=== PATIENT | female | born 2000 | race Caucasian/White ===

== ENCOUNTER 2021-06-13 21:54 | Inpatient (IN) ==
[2021-06-13] MEDS ORDERED: OXYTOCIN 30 UNITS/500 ML BAG IV PRN (22:35)
--- NOTE | 2021-06-13 22:40 | History & Physical Report ---
Date of Service June 13, 2021 Assessment & Plan (1) Encounter for supervision of normal intrauterine in primigravida, antepartum: Plan: Admit to L&D. EFM/toco. Labs, COVID swab per protocol. OK for epidural when she desires. Anticipate . History of Present Illness Chief Complaint: labor Primary Care Provider: NO PCP 21yo @ 39 4/7, contractions over the past few days. Increasing this evening. Scant vaginal blood. No leaking fluid. +FM. with transfer of care at 22w. Allergies Allergy/AdvReac Type Severity Reaction Status Date / Time amoxicillin Allergy Intermediate hives Verified 06/13/21 22:11 mupirocin [From Bactroban] Allergy Mild rash Verified 06/13/21 22:11 Home Medications Medication Instructions Recorded Confirmed Type prenat.vits,dawit,jgi-qwzp-obvzv 1 tab PO DAILY 02/02/21 06/13/21 History Patient History Medical History Deviated septum HPV (human papilloma virus) infection LGSIL (low grade squamous intraepithelial dysplasia) Surgical History History of colposcopy Family History Denies family history of Ovarian cancer Diabetes Breast cancer Lung cancer Colorectal cancer Cancer Hypertension Social History Smoking Status: Never smoker Second Hand Exposure: No; Hx Alcohol Use: No Hx Substance Use: No Preferred Language: Bengali Communication Ability: Effective Visual Impairment: No Limitations Hearing Ability: Normal Engraver Hand Soft Metals Required: No Beliefs That Will Affect Care: None marital status: Single marital status details: Kevan Grubbs Junior (26) [phone] Current Living Situation: Significant Other Current Living Situation Comment: Significant other and no pets current occupational status: employed current occupation: [employer] Other Information That Helps Us Care for You: No Feels Safe at Home: No Is there a partner from a previous relationship who is making you feel unsafe now?: No Any Concerns about Your Family Situation: No Would You Like to Speak to Someone About Your Situation: No Safety Concerns: Feels Safe At This Time Childhood Exposure to Second-Hand Smoke: No caffeine: No Dental Care, Regularly: Yes Seatbelt Use: always Sunscreen Use: No Do you think of yourself as: straight/heterosexual Sexual Activity: has been sexually active within the last 12 months Gender Identity: Female Assistive Devices: None Review of Systems All systems reviewed & are unremarkable except as noted in HPI & below Physical Exam Constitutional: WD/WN, vitals as above Respiratory: normal respiratory effort, lungs clear to auscultation no respiratory distress Cardiovascular: Rate/Rhythm: regular rate and regular rhythm Gastrointestinal (Abdomen): Inspection/Auscultation: abdomen normal to inspection Percussion/Palpation: abdomen soft; abdomen nontender Gravid. No s/s chorio or abruption. Skin: no rashes, warm and dry Psychiatric: A+Ox3, euthymic affect Results & Data ([facility]) Vital Signs (Past 12 Hours) Vital Signs Temp Pulse Resp BP 06/13/21 22:12 36.8 C 64 18 118/75 06/13/21 22:09 64 118/75 Monitoring External Monitor FHT Cat 1 [place] Q 2-4 min SVE 4cm/90/bulging membranes per RN exam Coding Level of Care Code None Diagnoses Encounter for supervision of normal intrauterine in primigravida, antepartum Z34.00
[2021-06-13 23:02] LABS: Hematocrit (blood only) 37.3 % (37-47); Hemoglobin 12.9 g/dL (12.0-16.0); Mean Corpuscular Hemoglobin 30.9 pg (25-34); Mean Corpuscular Hgb Conc 34.6 g/dL (32-36); Mean Corpuscular Volume 89.4 fL (80-100); Mean Platelet Volume 12.1 fL (7.4-10.4); Platelet Count 183 K/uL (130-400); RDW Coefficient of Variation 13.1 % (11.5-14.5); RDW Standard Deviation 42.9 fL (36.4-46.3); Red Blood Count 4.17 M/uL (4.2-5.4); White Blood Count 10.47 K/uL (4.8-10.8)
[2021-06-13] MEDS: LACTATED RINGER'S 1,000 ML IV PRN (23:02)
[2021-06-13] MEDS ORDERED: fentaNYL citrate 100 MCG/2 ML VIAL ONE (23:08)
[2021-06-13] MEDS ORDERED: BUPIVACAINE 0.25% 30 ML VIAL ONE (23:08)
[2021-06-13] MEDS ORDERED: SODIUM CHLORIDE 0.9% INJ 10 ML VIAL ONE (23:08)
[2021-06-13] MEDS ORDERED: ePHEDrine sulfate 50 MG/ML AMP ONE (23:08)
[2021-06-13] MEDS ORDERED: fentaNYL 2MCG/ML ROPIVACAINE 1.25MG/ML 100 ML BAG EPI ONE (23:09)
[2021-06-13] MEDS ORDERED: fentaNYL 2MCG/ML ROPIVACAINE 1.25MG/ML 100 ML BAG EPI PRN (23:27)
[2021-06-13] MEDS ORDERED: diphenhydrAMINE 50 MG/ML VIAL IV PRN (23:27)
[2021-06-13] MEDS ORDERED: NALOXONE HCL 0.4 MG/1 ML VIAL/CARP IV PRN (23:27)
[2021-06-13] MEDS ORDERED: ePHEDrine sulfate 50 MG/ML AMP IV PRN (23:27)
[2021-06-13] MEDS ORDERED: ONDANSETRON INJ 2 MG/ML 2 ML VIAL IV PRN (23:27)
[2021-06-13] MEDS ORDERED: NALOXONE HCL 1 MG in SODIUM CHLORIDE 0.9% 1000ML 1,000 ML IV PRN (23:27)
[2021-06-13] MEDS ORDERED: NALBUPHINE HCL INJ 10 MG/ML AMP IV PRN (23:27)
--- NOTE | 2021-06-13 23:27 | Anesthesiology Consultation ---
Date of Service June 13, 2021 Assessment & Plan ASA ASA2 Proposed Anesthesia Anesthesia Type: Labor Epidural Risk / Benefits Reviewed With: PT / POA / Parent / Guardian, Accepts Plan and Informed Consent Obtained History Height/Weight Height: 5 ft 3 in Weight: 63.503 kg Allergies Allergy/AdvReac Type Severity Reaction Status Date / Time amoxicillin Allergy Intermediate hives Verified 06/13/21 22:11 mupirocin [From Bactroban] Allergy Mild rash Verified 06/13/21 22:11 Medications Home Medications Medication Instructions Recorded Confirmed Last Taken prenat.vits,dawit,tog-slwm-eklbt 1 tab PO DAILY 02/02/21 06/13/21 06/12/21 08:00 Active Medications Generic Name Dose Route Start Last Admin Trade Name Freq PRN Reason Stop Dose Admin Lactated Ringer's 1,000 mls @ 125 mls/hr 06/13/21 22:35 06/13/21 23:49 Lr IV 06/15/21 22:34 125 mls/hr .Q8H PRN Infusion L&D Protocol Protocol Past Medical History Medical History Deviated septum HPV (human papilloma virus) infection LGSIL (low grade squamous intraepithelial dysplasia) Exercise / Class Metabolic Activity II 4-5 Yardwork/Stairs/Walk up hill Past Family History Family History Denies family history of Ovarian cancer Diabetes Breast cancer Lung cancer Colorectal cancer Cancer Hypertension Past Surgical History Surgical History History of colposcopy Past Anesthesia History No Hx of Anesthesia Complications and No Family Hx of Anesthesia Complications History of PONV No Hx of PONV and No Hx of Motion Sickness Social History Smoking Status: Never smoker Hx Alcohol Use: No Hx Substance Use: No substance use type: does not use Review of Systems denies fever/cough/ colds/ chest pain/ SOB/ JOY denies JOY Physical Exam Vital Signs Last Vital Signs Temp 36.8 C 06/13/21 22:12 Pulse 74 06/13/21 23:57 Resp 18 06/13/21 22:12 BP 113/61 06/13/21 23:57 Pulse Ox 98 06/13/21 23:54 ENMT Mouth: no TMJ abnormality and no dentition abnormality Thyromental Distance: > or= 3.5 Finger Breadths Mallampati Class: II Neck neck extension not limited Respiratory normal respiratory effort; no respiratory distress Auscultation: lungs clear to auscultation bilaterally Cardiovascular Rate/Rhythm: regular rate and regular rhythm Neurologic moves all extremities Psychiatric Orientation: alert and oriented x 3 Testing Laboratory Results 06/13/21 22:50
[2021-06-14] MEDS: LACTATED RINGER'S 1,000 ML IV PRN (00:28)
--- NOTE | 2021-06-14 05:09 | Delivery Summary ---
Vaginal Delivery Summary Date of Service June 14, 2021 Vaginal Delivery Summary and 1st Degree LAC Vaginal Delivery Summary: Pre-delivery diagnoses: 21yo @ 39 5/7, spontaneous labor Post-delivery diagnoses: same Procedure: spontaneous vaginal delivery, repair of 1st degree tear Surgeon: Kenisha Abdi DO Complications: none Findings: Viable male . Apgars: 8/9 . Weight pending, please see nursery records Estimated blood loss: 300ml Description of delivery: The patient progressed to complete with epidural anesthesia. She then began to push. She spontaneously vaginally delivered a viable from the cephalic presentation. The head delivered in FORREST position. The anterior shoulder delivered, followed by the posterior shoulder, followed by the body. The baby was placed on mother's abdomen and a spontaneous cry was heard. Delayed cord clamping was employed, and the cord was doubly clamped and cut. Cord blood was obtained. The placenta was delivered spontaneously intact with a 3-vessel cord. The uterus and vagina were swept of clots and debris. IV pitocin was given. The uterus became firm. The cervix, vagina, and perineum were inspected and a 1st degree perineal laceration was noted and repaired with a figure of eight stitch of 3-0 vicryl to obtain hemostasis. Excellent hemostasis was observed. The mother and baby are recovering in stable and good condition in the room. Sponge, needle and instrument counts were correct x 2. Kenisha Abdi DO [facility] Vaginal Delivery Charge Vaginal Delivery Codes: 00784 global code for the antepartum, delivery, and post- Delivery Type Details: and 1st Degree LAC
[2021-06-14] MEDS ORDERED: bisacodyL 10 MG SUPP PR PRN (05:33)
[2021-06-14] MEDS ORDERED: BENZOCAINE 20% AER SPR 82.5 GM CAN EXT PRN (05:33)
[2021-06-14] MEDS ORDERED: HYDROCORTISONE ACETATE 25 MG SUPP PR PRN (05:33)
[2021-06-14] MEDS ORDERED: ACETAMINOPHEN 325 MG TAB PO PRN (05:33)
[2021-06-14] MEDS ORDERED: OXYTOCIN 30 UNITS/500 ML BAG IV PRN (05:33)
[2021-06-14] MEDS ORDERED: DIPHTHERIA/TETANUS/PERTUSSIS 0.5 ML SYR/VIAL IM ONE (05:33)
[2021-06-14] MEDS ORDERED: oxyCODONE/ACETAMINOPHEN 5mg/325mg TAB PO PRN (05:33)
--- NOTE | 2021-06-14 07:04 | Anesthesiology Progress Note ---
Date of Service June 14, 2021 Anesthesia Post Procedure Vital Signs Vital Signs: Temp Pulse Resp BP Pulse Ox 06/14/21 06:55 80 122/72 06/14/21 06:40 77 113/67 06/14/21 06:35 18 06/14/21 06:25 76 123/85 06/14/21 06:10 73 103/69 06/14/21 06:05 20 06/14/21 05:55 68 111/73 06/14/21 05:50 18 06/14/21 05:40 65 110/69 06/14/21 05:35 16 06/14/21 05:26 55 L 109/66 06/14/21 05:20 18 06/14/21 05:09 65 104/56 L 06/14/21 05:05 74 18 100 06/14/21 05:00 71 99 06/14/21 04:55 67 100 06/14/21 04:50 83 98 06/14/21 04:49 20 06/14/21 04:47 93 H 84 L 06/14/21 04:45 109 H 100 06/14/21 04:40 99 H 100 06/14/21 04:35 81 99 06/14/21 04:31 99 H 140/58 L 06/14/21 04:30 101 H 16 100 06/14/21 04:24 86 99 06/14/21 04:20 36.7 C 06/14/21 04:19 77 98 06/14/21 04:16 75 86/55 L 06/14/21 04:14 71 97 06/14/21 04:09 66 96 06/14/21 04:04 74 97 06/14/21 04:01 72 92/55 L 06/14/21 03:59 72 98 06/14/21 03:54 86 99 06/14/21 03:49 79 100 06/14/21 03:45 71 96/56 L 06/14/21 03:44 68 98 06/14/21 03:39 62 98 06/14/21 03:34 68 97 06/14/21 03:31 64 97/56 L 06/14/21 03:29 65 98 06/14/21 03:24 66 98 06/14/21 03:19 60 98 06/14/21 03:16 56 L 92/54 L 06/14/21 03:14 63 96 06/14/21 03:09 60 95 06/14/21 03:04 63 95 06/14/21 03:01 55 L 88/50 L 06/14/21 03:00 16 06/14/21 02:59 58 L 96 06/14/21 02:54 66 96 06/14/21 02:49 65 97 06/14/21 02:45 68 98/52 L 06/14/21 02:44 63 97 06/14/21 02:39 62 98 06/14/21 02:34 62 99 06/14/21 02:30 16 06/14/21 02:29 57 L 98/54 L 99 06/14/21 02:27 36.8 C 06/14/21 02:24 60 99 06/14/21 02:19 64 99 06/14/21 02:15 59 L 107/69 06/14/21 02:14 57 L 99 06/14/21 02:09 68 99 06/14/21 02:04 66 100 06/14/21 02:00 61 16 107/67 06/14/21 01:59 63 99 06/14/21 01:54 55 L 99 06/14/21 01:49 61 100 06/14/21 01:44 62 113/66 100 06/14/21 01:39 56 L 98 06/14/21 01:34 55 L 100 06/14/21 01:31 54 L 110/65 06/14/21 01:30 16 06/14/21 01:29 56 L 99 06/14/21 01:24 56 L 99 06/14/21 01:19 56 L 100 06/14/21 01:15 54 L 110/60 06/14/21 01:14 55 L 98 06/14/21 01:09 53 L 99 06/14/21 01:04 60 100 06/14/21 01:00 16 06/14/21 00:59 61 113/63 96 06/14/21 00:57 70 92 06/14/21 00:54 64 99 06/14/21 00:49 65 100 06/14/21 00:44 60 98 06/14/21 00:41 63 113/83 06/14/21 00:39 66 100 06/14/21 00:34 64 99 06/14/21 00:30 18 06/14/21 00:29 86 100 06/14/21 00:25 74 100/54 L 06/14/21 00:24 75 100 06/14/21 00:22 36.7 C 06/14/21 00:19 98 H 104/59 L 100 06/14/21 00:14 64 107/68 99 06/14/21 00:09 65 97 06/14/21 00:08 67 111/65 06/14/21 00:04 71 97 06/14/21 00:02 74 96/61 L 06/13/21 23:59 74 107/65 97 06/13/21 23:57 74 113/61 06/13/21 23:54 76 123/69 98 06/13/21 23:52 74 109/70 06/13/21 23:50 72 107/67 06/13/21 23:49 76 98 06/13/21 23:44 81 100 06/13/21 23:39 76 85 L 06/13/21 23:34 71 100 06/13/21 23:29 72 100 06/13/21 23:24 73 100 06/13/21 23:19 72 100 06/13/21 22:12 36.8 C 64 18 118/75 06/13/21 22:09 36.8 C 64 18 118/75 Pain Intensity Left Lower Abdomen: Pain Intensity: 0 Transfer of Care Handoff Completed per policy Notes Mental Status: alert / awake / arousable and participated in evaluation Patient Amnestic to Procedure: Yes Nausea / Vomiting: adequately controlled Pain: adequately controlled Airway Patency, RR, SpO2: stable & adequate BP & HR: stable & adequate Hydration State: stable & adequate Anesthetic Complications: no major complications apparent and Pt Satisfied with anesthetic care
[2021-06-14] MEDS: IBUPROFEN 600 MG TAB PO PRN ×3 (08:55→20:24)
[2021-06-14] MEDS: PRENATAL VITAMIN 1 TAB PO SCH (08:55)
[2021-06-14] MEDS: DOCUSATE SODIUM 100 MG CAP PO SCH ×2 (08:55→20:24)
[2021-06-15] MEDS: IBUPROFEN 600 MG TAB PO PRN ×4 (00:34→19:45)
[2021-06-15 06:18] LABS: Hematocrit (blood only) 32.3 % (37-47); Mean Corpuscular Hemoglobin 31.5 pg (25-34); Mean Corpuscular Hgb Conc 34.1 g/dL (32-36); Mean Corpuscular Volume 92.6 fL (80-100); Mean Platelet Volume 12.1 fL (7.4-10.4); Platelet Count 161 K/uL (130-400); RDW Coefficient of Variation 13.2 % (11.5-14.5); RDW Standard Deviation 44.9 fL (36.4-46.3); Red Blood Count 3.49 M/uL (4.2-5.4); White Blood Count 10.84 K/uL (4.8-10.8)
--- NOTE | 2021-06-15 07:27 | Obstetrical Progress Note ---
Date of Service <Jayce Allen DO - Last Filed: 06/15/21 08:28> June 15, 2021 Assessment & Plan <Jayce Allen DO - Last Filed: 06/15/21 08:28> (1) Encounter for care and examination after delivery: 21 yo post day 1 from vaginal delivery, doing well. -Continue routine post care. -vital signs reviewed and WNL. (Tmax 36.8) -Blood type O+, GBS negative, Rubella Immune -Encourage ambulation, monitor and control pain with Motrin, tylenol PRN, resume regular diet, monitor lochia. -encourage breast feeding. -hemoglobin 11.0 -Patient would like to go home today, discussed discharge with patient. Patient will follow up with Dr. Abdi in clinic in 6 weeks. <Negro Carey MD - Last Filed: 06/15/21 09:24> (1) Encounter for care and examination after delivery: Subjective <Jayce Allne DO - Last Filed: 06/15/21 08:28> Ambulation: ambulating normally Voiding: no voiding problems Passing Gas:: Yes Diet Tolerance:: regular diet Lochia:: Small Feeding Type:: breast feeding Current Pain Level(1-10): 0 Review of Systems Denies fever, chills, sweats Denies shortness of breath, difficulty breathing, chest pain, palpitations, chest pressure. Denies breast pain. Denies dysuria. Denies headache or changes in vision Physical Exam <DO Eleni France Last Filed: 06/15/21 08:28> General: Alert, oriented. No acute distress. Cardiac: Regular rate and rhythm, no murmurs/rubs/gallops. Respiratory: Clear to auscultation bilaterally a/p, no wheezes/rales/rhonchi. No increased work of breathing. Symmetrical chest rise. No respiratory distress. Abdomen: Soft, nontender, nondistended. Bowel sounds present. Uterus: Uterine fundus firm, palpable 2 cm below umbilicus. Lower Extremities: No lower extremity edema or swelling. No deep calf pain. Michelle's negative bilaterally Results & Data ([facility]) <Jayce Allen DO - Last Filed: 06/15/21 08:28> Vital Signs (Past 12 Hours) Vital Signs Temp Pulse Resp BP Pulse Ox 06/15/21 00:30 36.5 C 63 16 107/75 99 06/14/21 19:50 36.6 C 77 17 96/63 L 98 <Negro Carey MD - Last Filed: 06/15/21 09:24> Co-Signing Physician Notes Patient seen and evaluated and agree with above assessment and plan. Stable for discharge. Resident Activity Tracking <Jayce Allen DO - Last Filed: 06/15/21 08:28> Resident Involvement: Resident Care Provided Care Provided: OB Delivery
[2021-06-15] MEDS: DOCUSATE SODIUM 100 MG CAP PO SCH (07:28)
[2021-06-15] MEDS: PRENATAL VITAMIN 1 TAB PO SCH (07:28)
[2021-06-15] MEDS ORDERED: bisacodyL 5 MG TABEC PO SCH (20:00)
== END 2021-06-15 19:50 | disposition home or self-care (01) | DRG 807 ==
LOC: OPB 21:54 → 4S1 21:57 → 4E2 06-14 08:58

== ENCOUNTER 2023-09-21 00:46 | Inpatient (IN) ==
[2023-09-21] MEDS ORDERED: LIDOCAINE 1% LOCAL 20 ML VIAL INFIL PRN (01:16)
--- NOTE | 2023-09-21 01:19 | History & Physical Report ---
Date of Service September 21, 2023 History of Present Illness Chief Complaint: contractions Primary Care Provider: NO PCP 23yo @ 39 05/12, came to L&D with contractions - membrane sweep in office today. No leaking fluid, vaginal bleeding. + movement. Allergies Allergy/AdvReac Type Severity Reaction Status Date / Time amoxicillin Allergy Intermediate hives Verified 09/20/23 11:33 mupirocin [From Bactroban] Allergy Mild rash Verified 09/20/23 11:33 Home Medications Medication Instructions Recorded Confirmed Type prenat.vits,dawit,lxk-xbox-awwqy 1 tab PO DAILY 02/02/21 09/21/23 History iron 60 PRN anemia 09/21/23 History Patient History Medical History Deviated septum HPV (human papilloma virus) infection LGSIL (low grade squamous intraepithelial dysplasia) Surgical History History of colposcopy Family History Denies family history of Ovarian cancer Prostate cancer Diabetes Breast cancer Lung cancer Colorectal cancer Cancer Hypertension Social History (Updated 09/21/23 @ 01:02 by Angelika King RN) Smoking Status: Never smoker Second Hand Exposure: No; Do You Dip or Chew Tobacco: No; Hx Alcohol Use: No Hx Substance Use: No Preferred Language: Danish Communication Ability: Effective Visual Impairment: No Limitations Hearing Ability: Normal Electromechanical Engineer Required: No Beliefs That Will Affect Care: None marital status: marital status details: Kevan Grubbs Junior (28) [phone] Current Living Situation: Spouse Current Living Situation Comment: spouse, child, one dog current occupational status: employed current occupation: [employer] Feels Safe at Home: Yes Childhood Exposure to Second-Hand Smoke: No caffeine: No Dental Care, Regularly: Yes Seatbelt Use: always Sunscreen Use: No Do you think of yourself as: straight/heterosexual Sexual Activity: has been sexually active within the last 12 months Gender Identity: Female Assistive Devices: None Review of Systems All systems reviewed & are unremarkable except as noted in HPI & below Physical Exam Physical Exam: FHT Cat 1 [place] Q 2-4 SVE 4cm per RN Constitutional: WD/WN, vitals as above Respiratory: normal respiratory effort, lungs clear to auscultation no respiratory distress Cardiovascular: Rate/Rhythm: regular rate and regular rhythm Gastrointestinal (Abdomen): Inspection/Auscultation: abdomen normal to inspection Percussion/Palpation: abdomen soft; abdomen nontender Gravid. No s/s chorio or abruption. Skin: no rashes, warm and dry Psychiatric: A+Ox3, euthymic affect Results & Data Vital Signs (Past 12 Hours) Vital Signs Pulse BP 09/21/23 01:10 78 108/63 Coding Level of Care Code None
[2023-09-21] MEDS: LACTATED RINGER'S 1,000 ML IV PRN (01:20)
[2023-09-21 01:50] LABS: Hematocrit (blood only) 36.1 % (37.0-47.0); Hemoglobin 12.6 g/dl (12.0-16.0); Mean Corpuscular Hemoglobin 31.7 pg (25.0-34.0); Mean Corpuscular Hgb Conc 34.9 g/dL (32.0-36.0); Mean Corpuscular Volume 90.7 fL (80.0-100.0); Mean Platelet Volume 10.9 fL (9.4-12.4); Platelet Count 165 K/uL (130-400); RDW Coefficient of Variation 13.2 % (11.5-14.5); RDW Standard Deviation 43.6 fL (36.4-46.3); Red Blood Count 3.98 M/uL (4.20-5.40)
--- NOTE | 2023-09-21 02:26 | Anesthesiology Consultation ---
Date of Service September 21, 2023 Assessment & Plan Chart Review Chart Review: Acceptable Risk for Surgery and Patient NOT seen in Pre Admission Testing Consults Requested none ASA ASA2 Proposed Anesthesia Anesthesia Type: Labor Epidural and CSE Risk / Benefits Reviewed With: PT / POA / Parent / Guardian, Accepts Plan and Informed Consent Obtained History Height/Weight Height: 5 ft 3 in Weight: 67.132 kg Allergies Allergy/AdvReac Type Severity Reaction Status Date / Time amoxicillin Allergy Intermediate hives Verified 09/20/23 11:33 mupirocin [From Bactroban] Allergy Mild rash Verified 09/20/23 11:33 Medications Home Medications Medication Instructions Recorded Confirmed Last Taken prenat.vits,dawit,lkf-bbnv-wfymv 1 tab PO DAILY 02/02/21 09/21/23 09/20/23 09:00 iron 60 PRN anemia 09/21/23 09/20/23 09:00 Active Medications Generic Name Dose Route Start Last Admin Trade Name Freq PRN Reason Stop Dose Admin Lactated Ringer's 1,000 mls @ 125 mls/hr 09/21/23 01:16 09/21/23 01:20 Lr IV 09/23/23 01:15 999 mls/hr .Q8H PRN Administration L&D Protocol Protocol NPO Date Last Intake of Fluids: 09/21/23 Time Last Intake of Fluids: 01:00 Date Last Intake of Solids: 09/20/23 Time Last Intake of Solids: 12:00 Past Medical History Medical History Encounter for care and examination after delivery Encounter for supervision of normal intrauterine in primigravida, antepartum Deviated septum LGSIL (low grade squamous intraepithelial dysplasia) HPV (human papilloma virus) infection Exercise / Class Metabolic Activity II 4-5 Yardwork/Stairs/Walk up hill Past Family History Family History Denies family history of Ovarian cancer Prostate cancer Diabetes Breast cancer Lung cancer Colorectal cancer Cancer Hypertension Past Surgical History Surgical History History of colposcopy Past Anesthesia History No Hx of Anesthesia Complications and No Family Hx of Anesthesia Complications History of PONV No Hx of PONV and No Hx of Motion Sickness Social History Smoking Status: Never smoker Do You Dip or Chew Tobacco: No Hx Alcohol Use: No Hx Substance Use: No substance use type: does not use Physical Exam Vital Signs Last Vital Signs Temp 36.8 C 09/21/23 01:28 Pulse 82 09/21/23 02:20 Resp 18 09/21/23 01:28 BP 113/65 09/21/23 02:15 Pulse Ox 99 09/21/23 02:20 Constitutional no acute distress and not obese ENMT Mouth: no dentition abnormality Thyromental Distance: < 3.5 Finger Breadths Mallampati Class: II Neck normal visual inspection and trachea midline; neck extension not limited Respiratory normal respiratory effort Auscultation: lungs clear to auscultation bilaterally Cardiovascular Rate/Rhythm: regular rate and regular rhythm Heart Sounds: no murmur Vessels: no carotid bruit Musculoskeletal Spine: lumbar spine normal to inspection; normal cervical ROM Extremities: full ROM of extremities Neurologic moves all extremities Motor/Sensory: no sensory deficit Psychiatric Orientation: alert and oriented x 3 Testing Laboratory Results 09/21/23 01:34
[2023-09-21] MEDS: fentANYL 2 MCG/ML BUPIVacaine 0.125%-NSS 100ML BAG ONE (02:46)
[2023-09-21] MEDS: fentaNYL citrate PF 100 MCG/2 ML VIAL ONE (02:46)
[2023-09-21] MEDS: LIDOCAINE 2%/EPINEPHRINE 1:200,000 20 ML PF ONE (02:46)
[2023-09-21] MEDS: BUPIVACAINE 0.25% PF 30 ML VIAL ONE (02:46)
[2023-09-21] MEDS ORDERED: SODIUM CHLORIDE 0.9% PF INJ 10 ML VIAL EPI PRN (02:49)
[2023-09-21] MEDS ORDERED: ONDANSETRON INJ 2 MG/ML 2 ML VIAL IV PRN (02:49)
[2023-09-21] MEDS ORDERED: diphenhydrAMINE 50 MG/ML VIAL IV PRN (02:49)
[2023-09-21] MEDS ORDERED: fentANYL 2 MCG/ML BUPIVacaine 0.125%-NSS 100ML BAG EPI PRN (02:49)
[2023-09-21] MEDS ORDERED: NALOXONE HCL 0.4 MG/1 ML VIAL/CARP IV PRN (02:49)
[2023-09-21] MEDS ORDERED: BUPIVACAINE 0.25% PF 30 ML VIAL EPI PRN (02:49)
[2023-09-21] MEDS ORDERED: fentaNYL citrate PF 100 MCG/2 ML VIAL EPI PRN (02:49)
[2023-09-21] MEDS ORDERED: PROMETHAZINE 6.25 MG/50.25 ML BAG IV PRN (02:49)
[2023-09-21] MEDS ORDERED: NALOXONE HCL 1 MG in SODIUM CHLORIDE 0.9% 1,000 ML IV PRN (02:49)
[2023-09-21] MEDS ORDERED: LIDOCAINE 2% MPF LOCAL 5 ML VIAL EPI PRN (02:49)
[2023-09-21] MEDS ORDERED: ePHEDrine sulfate 50 MG/ML AMP IV PRN (02:49)
[2023-09-21] MEDS ORDERED: NALBUPHINE HCL 5 MG in SYRINGE 0 ML IV PRN (02:49)
[2023-09-21] MEDS ORDERED: ROPIVACAINE 0.5% PF 5 MG/ML 20 ML VIAL EPI PRN (02:49)
[2023-09-21] MEDS: SODIUM CHLORIDE 0.9% PF INJ 10 ML VIAL ONE (02:53)
[2023-09-21] MEDS: ePHEDrine sulfate 50 MG/ML AMP ONE (02:56)
[2023-09-21] MEDS: OXYTOCIN 30 UNITS/NSS 30 UNITS/500 ML BAG IV PRN (03:17)
--- NOTE | 2023-09-21 03:29 | Delivery Summary ---
Vaginal Delivery Summary Date of Service September 21, 2023 Vaginal Delivery Summary [facility] Vaginal Delivery Summary: Pre-delivery diagnoses: 23yo @ 39 /, spontaneous labor Post-delivery diagnoses: same Procedure: spontaneous vaginal delivery Surgeon: Kenisha Abdi DO Complications: none Findings: Viable male . Apgars: 8/8 . Weight pending, please see nursery records Estimated QBL: 301cc Description of delivery: The patient progressed to complete with epidural anesthesia. AROM meconium stained fluid. She then began to push. She spontaneously vaginally delivered a viable from the cephalic presentation. The head delivered in FORREST position. Nuchal - tight, delivered through. The anterior shoulder delivered, followed by the posterior shoulder, followed by the body. The baby was placed on mother's abdomen and a spontaneous cry was heard. Delayed cord clamping was employed, and the cord was doubly clamped and cut. Cord blood was obtained. The placenta was delivered spontaneously intact with a 3-vessel cord. The uterus and vagina were swept of clots and debris. IV pitocin was given. The uterus became firm. The cervix, vagina, and perineum were inspected and no lacerations were noted. Excellent hemostasis was observed. The mother and baby are recovering in stable and good condition in the room. Sponge and instrument counts were correct x 2. Kenisha Abdi DO [facility] Vaginal Delivery Charge Vaginal Delivery Codes: 93070 global code for the antepartum, delivery, and post- Delivery Type Details: [facility]
[2023-09-21] MEDS ORDERED: BENZOCAINE 20% SPRY 85 APPLN/85 GM CAN EXT PRN (03:59)
[2023-09-21] MEDS ORDERED: HYDROCORTISONE ACETATE 25 MG SUPP PR PRN (03:59)
[2023-09-21] MEDS ORDERED: oxyCODONE/ACETAMINOPHEN 5mg/325mg TAB PO PRN (03:59)
[2023-09-21] MEDS ORDERED: OXYTOCIN 30 UNITS/NSS 30 UNITS/500 ML BAG IV PRN (03:59)
[2023-09-21] MEDS: DIPHTHER/TETAN/PERTUS Vaccine (Tdap, Adol/Adult) 0.5mL IM ONE (04:39)
[2023-09-21] MEDS: SODIUM CHLORIDE 0.9% PF INJ 10 ML VIAL EPI STA (04:40)
[2023-09-21] MEDS: LIDOCAINE 2%/EPINEPHRINE 1:200,000 20 ML PF EPI STA (04:40)
[2023-09-21] MEDS: fentaNYL citrate PF 100 MCG/2 ML VIAL EPI STA (04:40)
[2023-09-21] MEDS: BUPIVACAINE 0.25% PF 30 ML VIAL EPI STA (04:40)
[2023-09-21] MEDS: DOCUSATE SODIUM 100 MG CAP PO SCH (08:13)
[2023-09-21] MEDS: PRENATAL VITAMIN 1 TAB PO SCH (08:13)
--- NOTE | 2023-09-21 08:45 | Anesthesia Procedure Note ---
Date of Service September 21, 2023 Anesthesia Post Epidural Note Vital Signs Vital Signs: Temp Pulse Resp BP Pulse Ox O2 Del Method 36.6 C 95 H 18 103/64 96 Room Air 09/21/23 07:50 09/21/23 07:50 09/21/23 07:50 09/21/23 07:50 09/21/23 07:50 09/21/23 07:50 Notes Mental Status: alert / awake / arousable and participated in evaluation Patient Amnestic to Procedure: No Nausea / Vomiting: adequately controlled Pain: adequately controlled Airway Patency, RR, SpO2: stable & adequate BP & HR: stable & adequate Hydration State: stable & adequate Neuraxial Anesthesia: was administered and sensory block resolved Anesthetic Complications: no major complications apparent and Pt Satisfied with anesthetic care Epidural: Removed without complications and With tip intact
[2023-09-21] MEDS: IBUPROFEN 600 MG TAB PO PRN (10:44)
[2023-09-21] MEDS: ACETAMINOPHEN 325 MG TAB PO PRN (18:30)
[2023-09-22 06:39] LABS: Hematocrit (blood only) 33.2 % (37.0-47.0); Hemoglobin 11.7 g/dl (12.0-16.0)
--- NOTE | 2023-09-22 06:42 | Obstetrical Progress Note ---
<Statement entered by Christi Porter MD - 09/22/23 08:14> Resident Physician Supervision Note: I interviewed and examined the patient. Discussed with Dr. Russo and agree with findings and plan as documented in the note. Any exceptions or clarifications are listed here: [ ] Documented By: Christi Porter MD, FACOG Date of Service September 22, 2023 Assessment & Plan (1) Normal labor and delivery: - 2nd PPD foll . Overall doing fine( mom and baby). - Non specific pain in LUQ, no other concerning features; likely due to stretch of delivery. - Vitals: Stable ( low baseline BP ; normal for her) - Lochia: Mod - No issues feeding. - Discharge Today Subjective Patient is a 23 yo female who is now PPD #2 following spontaneous vaginal delivery at 39 weeks. Reports feeling well this morning. She complains some abdominal pain in RLQ and rates 4/10 . Voiding normally. No fever, burning urine, has not passed Stool since delivery. Tolerating regular meals overnight and able to ambulate some. She has passed gas. Persistent lochia with some improvement this morning. Currently breast feeding. Review of Systems Denies fever, chills, sweats. Denies SOB, difficulty breathing, chest pain, palpitations, and chest pressure. Denies breast pain. Denies dysuria. Denies headache or changes in vision. Physical Exam General: Alert and oriented. No acute distress. CV: Regular rate and rhythm. No murmurs. Respiratory: CTA bilaterally. No rhonchi, wheezes, or crackles. No increased work of breathing. Abdomen: Positive bowel sounds. Soft, nontender, non distended. Uterus: Fundus firm and palpable suprapubic, Well Involuted Lower extremities: No LE edema. No deep calf pain. Results & Data Vital Signs (Past 12 Hours) Vital Signs Temp Pulse Resp BP Pulse Ox O2 Del Method 09/22/23 03:35 36.9 C 84 16 102/67 98 Room Air 09/22/23 00:21 36.6 C 74 16 96/56 L 97 Room Air
[2023-09-22 09:41] VITALS: BP 92/60; RESP 18; TEMP 98.6; O2SAT 97
[2023-09-22 09:46] VITALS: PULSE 84
[2023-09-22] MEDS ORDERED: bisacodyL 5 MG TABEC PO SCH (20:00)
[2023-09-23] MEDS ORDERED: bisacodyL 10 MG SUPP PR PRN (03:59)
== END 2023-09-22 14:40 | disposition home or self-care (01) | DRG 807 ==
LOC: OPB 00:46 → 4S1 00:51 → 4E2 06:01